=== PATIENT | male | born 1985 | race Caucasian/White ===

== ENCOUNTER 2022-04-13 23:33 | Emergency (ER) | payer BC, SELFPAY ==
[2022-04-13 23:34] VITALS: BP 140/92; PULSE 100; RESP 18; TEMP 36.4; O2SAT 98; BMI 29.3
[2022-04-14] MEDS: Amox/Clavulanate 875 MG Tablet PO (00:04)
--- NOTE | 2022-04-14 00:52 | EX.ED.DYSGE1 ---
HPI History of Present Illness Chief Complaint: Bite Narrative Narrative: Patient is a 36-year-old male with no reported significant medical issues. He states there is a dog in the neighborhood that was recently adopted from the [facility]. He states the dog has been over to their house recently and this evening must have got out and came to their house. The patient states that he was trying to stop a dog from leaving his porch that he can return to his harp maker and when he went to stop the dog with his right arm was bitten in the forearm. He states this occurred roughly 1 hour ago. Patient states that he is unsure of his tetanus status and he is unsure if he will need sutures or antibiotics and therefore comes in for evaluation [facility] Medical History Complex laceration of right ear No pertinent past medical history Home Medications amoxicillin 875 mg-potassium clavulanate 125 mg tablet 1 tab PO BID 10 days #20 tabs 04/14/22 [Rx Last Taken Unknown] Allergy/AdvReac Type Severity Reaction Status Date / Time erythromycin base Allergy Intermediate HIVES Verified 04/13/22 23:37 Family History Grandmother Arthritis Breast cancer Diabetes Grandfather Alcoholism Heart disease Hypertension High cholesterol Uncle Alcoholism Social History (Updated 01/29/20 @ 21:49 by Tiara Bose [employer]INE[employer], [employer]) Smoking Status: Never smoker alcohol intake: current substance use type: does not use additional social history: DOES TAKE ASPIRIN NEEDED DOES TAKE IBUPROFEN NEEDED ROS ROS ED Constitutional Constitutional ED: Denies chills or fever(s) ENT ENT ED: Denies sore throat Cardiovascular Cardiovascular: Denies chest pain Respiratory/Chest Respiratory/Chest: Denies cough or dyspnea Gastrointestinal Gastrointestinal: Denies abdominal pain, diarrhea, nausea or vomiting Genitourinary Genitourinary ED: Denies dysuria Musculoskeletal Musculoskeletal: Reports other Details: Positive right forearm pain ; Denies myalgias Integumentary Reports other Details: Positive dog bite/laceration right forearm ; Denies rash Neurologic Neurologic: Denies headache(s), paresthesias or weakness Hematologic/Lymphatic Hematologic/Lymphatic: Denies easy bleeding or easy bruising EXAM Physical Exam Const Vital Signs: 04/13/22 23:34 Temperature 97.5 F L Temperature Source Temporal Pulse Rate 100 Respiratory Rate 18 Blood Pressure 140/92 H Blood Pressure Mean 108 Pulse Ox 98 Oxygen Delivery Method Room Air Positive well nourished and well developed General Appearance ED: well developed Eyes PERRL and EOMs intact bilaterally Neck supple Resp normal respiratory effort and clear to auscultation bilaterally Cardio regular rate and regular rhythm GI non-distended Extremity Extremity Narrative: Right upper extremity is neurovascularly intact; AIN/PIN are intact and normal. Patient has full active range of motion without difficulty. To the volar aspect of his right distal third forearm patient has 3 linear lacerations consistent with dog bite. The wounds are approximate 1.5 cm in length each and are subcutaneous layer deep with minimal ooze of blood and no foreign body. Compartments are soft going against compartment syndrome. No signs of ligamentous or tendon injury. Remainder the exam is normal Neuro oriented x3 and CN's II-XII intact bilaterally Sensorium / Orientation: alert Psych mental status grossly normal Skin Skin Narrative: Dog bite/skin lacerations to the right forearm as documented above without signs of secondary infection MDM MDM MDM Narrative Medical decision making narrative: Patient presented to the ER with a dog bite to his right forearm. The dog is known and can be watched and therefore there is no need for rabies vaccination or immunoglobulin. The patient was unsure of his tetanus status so therefore this was updated. The wounds were gaping in nature and therefore he had 3 sutures placed in the wounds 1 in each to bring them loosely together to help with healing. The patient will be started on Augmentin for infection prophylaxis. We did discuss possible x-ray to ensure there is no fracture or retained tooth. Patient states he does not want that performed at this time as he has low concern for them. On exam there is no obvious foreign body with probing of the wound. Therefore the wound was closed as documented below and patient is otherwise safe for Patient had the 3 dog wounds cleaned with chlorhexidine. A total of 6 mL of 1% lidocaine with epinephrine was locally injected into the wounds for anesthesia. The wounds were copiously irrigated with normal saline. Then one 4 Ethilon sutures placed in simple and up to fashion through each of the 3 wounds to bring them loosely together. Patient tolerated the procedure well without complication Discharge Plan Triage Chief Complaint: Bite ED Provider: Gonzalez Rodriguez Dx/Rx/DC Orders Clinical Impression: Dog bite of right forearm without complication Instructions: ED Dog Bite Prescriptions: New amoxicillin-pot clavulanate 875-125 mg tablet 1 tab PO BID 10 Days Qty: 20 0RF Primary Care Provider: Jelani Alonzo Referrals: Jelani Alonzo MD [Primary Care Provider] - Activity Restrictions/Additional Instructions: Please see your family doctor or return to the ER in 5 to 7 days for suture removal. If you notice signs of secondary infection around the wound despite taking the antibiotic please return for repeat evaluation Disposition Disposition: Home, Self Care Discharge Date/Time: 04/14/22 01:24
[2022-04-14] MEDS: Diphth,Pertuss(Acell),Tet Vac 0.5 ML Vial IM (01:09)
== END 2022-04-14 01:24 | disposition home or self-care (01) ==
PROVIDERS: Emergency Provider Emergency Medicine; PCP Family Medicine; Visit Provider Emergency Medicine
DX: S51.851A Open bite of right forearm, initial encounter (principal); W54.0XXA Bitten by dog, initial encounter; Y92.008 Other place in unspecified non-institutional (private) residence as the place of occurrence of the external cause; Z23 Encounter for immunization
CPT/HCPCS: 12002; 90471; 90715; 99283